=== PATIENT | male | born 1950 | race Caucasian/White ===

== ENCOUNTER 2020-10-16 06:37 | Inpatient (IN) | payer MEDICARE, SELFPAY ==
[2020-10-16] VITALS (12 sets, daily range): BP systolic 92–121; BP diastolic 52–60; PULSE 99–113; RESP 16–20; TEMP 36.5–37; O2SAT 91–100; BMI 32.1; BMI 31.4
--- NOTE | 2020-10-16 07:15 | CT_ITS ---
EXAM: CT HEAD WITHOUT INTRAVENOUS CONTRAST : 1950 CLINICAL INDICATION: head injury TECHNIQUE: Multiple axial images were obtained of the head without intravenous contrast. This CT exam was performed using one or more of the following dose reduction techniques: automated exposure control, adjustment of the mA and/or kV according to patient size, and/or use of iterative reconstruction technique. This report was created using [employer] report generation technology. COMPARISON: None. 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 Diffuse cerebral volume loss. Periventricular small vessel chronic ischemic change. No intra- or extra-axial hemorrhage. Posterior fossa structures are unremarkable. No hydrocephalus. Basal cisterns are patent. BONES/JOINTS: Unremarkable. No discrete lytic or blastic abnormalities. VASCULATURE: Arterial calcifications. SINUSES: Unremarkable as visualized. Clear. MASTOID AIR CELLS: Unremarkable. Clear. ORBITS: Visualized globes, extraocular muscles, optic nerves and retrobulbar fat appear unremarkable. CT/Brain/Head without Contrast IMPRESSION: 1. 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 2. No acute intracranial abnormalities. 3. Age-related changes. Individualized dose optimization techniques were used for this CT. at 0759 Reported and signed by: Oscar Coello MD Electronically Signed: Oscar Coello MD at 7:58 EDT Tel , Service support ,
--- NOTE | 2020-10-16 07:15 | EKG12_ITS ---
Test Reason : ABD PAIN Blood Pressure : / mmHG Vent. Rate : 105 BPM Atrial Rate : 105 BPM P-R Int : 128 ms QRS Dur : 124 ms QT Int : 380 ms P-R-T Axes : 029 081 027 degrees QTc Int : 502 ms Sinus tachycardia with Premature supraventricular complexes Right bundle branch block Abnormal ECG Confirmed by MORELIA MOORE, WILBUR ([id number]), scientific editor EULOGIO ROCHA ([id number]) on 10/20/2020 12:57:29 PM Referred By: DB Confirmed By:WILBUR THIBODEAUX MD
--- NOTE | 2020-10-16 07:19 | ED.VIS.FALL ---
HPI HPI - Fall History of Present Illness Chief Complaint: Fall Narrative Narrative: 70-year-old male presenting with near syncope. He states that he has a recent diagnosis of stage IV colon cancer and is currently awaiting a PICC line in order to start chemotherapy. Today he had a fall in which she felt lightheaded prior to the fall. Patient fell and hit his head without LOC. He has a cephalohematoma on the back of his head. He does not complain of visual complaints although he has over the last 2 weeks experienced lightheadedness and generalized weakness secondary to his new diagnosis. It was discovered patient had DVT is also started on heparin 80 mg subcu every 12. He does state that he has chronically black stools which are not new. PFSH PFSH Medical History Alcohol abuse Anemia Ascites Cancer Cephalohematoma, non- Chronic pain Colon cancer Diabetes DVT (deep venous thrombosis) Former smoker Home Medications acetaminophen [Tylenol] 500 mg PO Q6H PRN 10/16/20 [History Last Taken Unknown] cholecalciferol (vitamin D3) [Vitamin D3] 50,000 unit PO QWEEK 10/16/20 [History Last Taken Unknown] enoxaparin [Lovenox] 80 mg SUBCUT Q12H 10/16/20 [History Last Taken Unknown] ferrous sulfate [FeroSul] 325 mg PO BID 10/16/20 [History Last Taken Unknown] lisinopril 40 mg PO DAILY 10/16/20 [History Last Taken Unknown] metformin 1,500 mg PO DAILY 10/16/20 [History Last Taken Unknown] oxycodone 5 mg PO Q6H PRN 10/16/20 [History Last Taken Unknown] oxycodone-acetaminophen [Percocet] 1 tab PO Q6H PRN 10/16/20 [History Last Taken Unknown] pantoprazole 40 mg PO DAILY 10/16/20 [History Last Taken Unknown] simvastatin 40 mg PO DAILY 10/16/20 [History Last Taken Unknown] Allergy/AdvReac Type Severity Reaction Status Date / Time No Known Allergies Allergy Verified 10/16/20 06:44 Social History (Updated 10/16/20 @ 12:[address] Black Pineda, DO) Smoking Status: Former smoker alcohol intake: current details: occassional ROS ROS ED Constitutional Constitutional ED: Denies fever(s), subjective or sweats Eyes Eyes: Denies blurry vision or diplopia ENT ENT ED: Denies rhinorrhea or sore throat Cardiovascular Cardiovascular: Denies chest pain or palpitations Respiratory/Chest Respiratory/Chest: Denies cough or dyspnea Gastrointestinal Gastrointestinal: Reports abdominal pain and melena Genitourinary Genitourinary ED: Denies dysuria or hematuria Musculoskeletal Musculoskeletal: Denies arthralgias or myalgias Integumentary Reports other Details: Occipital cephalhematoma ; Denies rash Neurologic Neurologic: Denies headache(s) or paresthesias Psychiatric Psychiatric: Denies anxiety or depression EXAM Physical Exam Const Vital Signs: 10/16/20 06:39 10/16/20 06:45 10/16/20 07:21 Temperature 97.7 F L 97.7 F L Temperature Source Temporal Temporal Pulse Rate 113 H 113 H Respiratory Rate 16 16 Respiratory Effort Normal Non-Labored Blood Pressure 92/52 L 92/52 L Blood Pressure Mean 65 65 Pulse Ox 91 91 97 Oxygen Delivery Method Room Air Nasal Cannula Nasal Cannula Oxygen Flow Rate (L/min) 2 2 10/16/20 07:49 10/16/20 08:46 10/16/20 09:13 Temperature 98.4 F 98.4 F 98.4 F Temperature Source Oral Oral Oral Pulse Rate 105 H 106 H 105 H Respiratory Rate 20 H 18 20 H Respiratory Effort Blood Pressure 103/54 L 105/58 L 99/60 Blood Pressure Mean 70 73 73 Pulse Ox 97 96 95 Oxygen Delivery Method Nasal Cannula Nasal Cannula Nasal Cannula Oxygen Flow Rate (L/min) 2 2 2 10/16/20 10:37 10/16/20 11:54 Temperature 98 F 98.5 F Temperature Source Temporal Oral Pulse Rate 102 H 102 H Respiratory Rate 16 20 H Respiratory Effort Blood Pressure 100/59 L 121/52 H Blood Pressure Mean 72 75 Pulse Ox 100 95 Oxygen Delivery Method Nasal Cannula Nasal Cannula Oxygen Flow Rate (L/min) 2 2 Positive well nourished General Appearance ED: NAD HEENT Reports normocephalic hematoma Hematoma Size: Occipital Eyes PERRL and EOMs intact bilaterally General Eye ED: Negative for pale conjunctiva or scleral icterus Neck No full ROM and No supple Resp normal respiratory effort and clear to auscultation bilaterally Cardio regular rhythm Rate: tachycardic GI GI Narrative: Abdominal distention with positive fluid wave. Inspection: abdominal distention Extremity normal to inspection Neuro oriented x3 Sensorium / Orientation: alert Psych mental status grossly normal and thought process normal Skin Skin Narrative: Superficial skin tear right forearm Rashes: no rashes MDM MDM MDM Narrative Medical decision making narrative: Patient presenting with generalized weakness and fall and could not get up on his own strength. Apparently this is been progressing over the last couple of weeks after being diagnosed with stage IV colon cancer. He was seen yesterday and given IV fluids as well as IV iron supplementation at that point his hemoglobin was 10.1 and is still 10.1 today. His white blood cell count was 20 and its 19.8.today platelet count is normal. Potassium was 5.5 yesterday and it is now 5.0. Creatinine was 2.41 yesterday and today it is 3.41 even after receiving fluids. LFTs are within normal limits. Patient had EKG performed on arrival which shows sinus tachycardia with a right bundle branch block on my interpretation. Patient's daughter is a nurse and she states that she is noncritical care, emergency room, ICU. She is very informed of this healthcare and is the medical power of vice president medical affairs. She states that his blood pressure was lower yesterday than today and that is why he received IV fluids. She states that prior to his diagnosis he was usually in the 120s systolic.His blood pressure has been low for his family monitor who is a nurse. She states that he was in the 70s yesterday and had outpatient 500 cc of IV fluids and his pressure is better today. The weakness and lightheadedness that he experiences is new over the last 2 weeks. Patient's daughter states that his hemoglobin was 10 yesterday. Patient's daughter also reports that he has had abdominal ascites since this new diagnosis and is on oxycodone at home for this pain. He has not required paracentesis. He denies fever, chills, nausea, vomiting. Radiologist read the chest x-ray as right upper lobe possible infiltrate. I did review the patient's past CT of the chest on 09/25/2020 and it is noted that he has an area in the right upper lobe with a reticulonodular infiltrate. On my interpretation I do not believe this is infectious in etiology given the previous findings and since he has no respiratory symptoms. He has been afebrile. His Covid antigen is negative. He does have hypotension however this is not a new finding for him and its higher than it was yesterday. This was all discussed with his daughter who is the medical power of vice president medical affairs and she states she does not want to do antibiotics at this time and she wants to hold off on antibiotics at this time. Patient was given 500 cc of IV fluids however his daughter did not want to give him too much due to his ascites issue and she is scared it will shift and cause him more pain. He was given fentanyl for pain due to his low blood pressure and he is currently comfortable. CT brain was negative for acute intracranial abnormality. I spoke with Dr. Gomes from oncology at [facility]. She did accept admission. Patient is awaiting transfer. After speaking with [facility] they do believe that patient will have an extended stay in the ER and given this I did contact the hospitalist for admission until that a transfer can be made. Patient's blood pressure had responded to fluids. He is admitted in stabilized condition. Impression: 1. History of stage IV colon cancer 2. Acute kidney injury 3. Hypotension 4. Leukocytosis 5. Closed head injury 6. Generalized weakness and falls Lab Data Labs: Laboratory Results - last 24 hr 10/16/20 10/16/20 10/16/20 06:55 06:55 09:10 WBC 19.8 H RBC 4.20 L Hgb 10.1 L Hct 32.9 L MCV 78.3 L MCH 24.0 L MCHC 30.7 L RDW Std Deviation 52.2 H RDW Coeff of Scarlett 18.5 H Plt Count 355 MPV 10.7 Immature Gran % (Auto) 1.600 H Neut % (Auto) 88.6 H Lymph % (Auto) 2.9 L [place] % (Auto) 6.5 Eos % (Auto) 0.1 Baso % (Auto) 0.3 Absolute Neuts (auto) 17.6 H Absolute Lymphs (auto) 0.58 L Nucleated RBC % 0 Differential Comment COMMENT Sodium 132 L Potassium 5.0 Chloride 102 Carbon Dioxide 17.0 L Anion Gap 13 BUN 71 H Creatinine 3.41 H Estim Creat Clear Calc 18.31 Est GFR (MDRD) Af Amer 23 L Est GFR (MDRD) Non-Af 19 L BUN/Creatinine Ratio 20.8 H Glucose 70 L Lactic Acid 1.3 Calcium 7.1 L Total Bilirubin 0.50 AST 19 ALT 8 L Alkaline Phosphatase 68 Troponin I High Sens 11.3 Total Protein 6.0 L Albumin 1.6 L Globulin 4.4 H Albumin/Globulin Ratio 0.4 L Radiography Diagnostic Testing: Radiology Impression Brain CT 10/16/20 07:15 IMPRESSION: 1. 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 2. No acute intracranial abnormalities. 3. Age-related changes. Individualized dose optimization techniques were used for this CT. at 0759 Reported and signed by: Oscar Coello MD Electronically Signed: Oscar Coello MD at 7:58 EDT Tel , Service support , Chest X-Ray 10/16/20 07:37 IMPRESSION: Patchy right upper lobe airspace disease. Findings may indicate pneumonia. at 0759 Reported and signed by: Oscar Coello MD Electronically Signed: Oscar Coello MD at 7:59 EDT Tel , Service support , Discharge Plan Disposition Disposition: Acute Care Hospital [facility] Discharge Date/Time: 10/16/20 11:59
[2020-10-16 07:27] LABS: Absolute Lymphocyte Count 0.58 X10^3/uL (0.83-4.51); Absolute Neutrophil Count 17.6 X10^3/uL (2.0-7.7); Basophil# 0.06 X10^3/uL; Basophil% 0.3 % (0-1); Eosinophil# 0.02 X10^3/uL; Eosinophils% 0.1 % (0-5); Hematocrit 32.9 % (40-54); Hemoglobin 10.1 g/dL (13.0-16.5); Lymphocyte # 0.58 X10^3/ul (0.83-4.51); Lymphocyte % 2.9 % (19-41); Mean Corp Hgb Conc 30.7 g/dL (32-36); Mean Corpuscular Volume 78.3 fL (80-94); Mean Platelet Vol. 10.7 fl (6.2-12.0); Monocyte# 1.29 X10^3/uL; Monocyte% 6.5 % (0-10); NRBC Flagged by Analyzer 0 % (0-5); Neutrophil # 17.57 X10^3/uL (2.7-7.7); Neutrophil % 88.6 % (47-70); POSITIVE DIFFERENTIAL YES; Platelet Count 355 K/mm3 (150-450); RBC Distribution Width CV 18.5 % (11.6-14.6); RBC Distribution Width SD 52.2 fl (35.1-43.9); White Blood Count 19.8 K/mm3 (4.4-11.0)
[2020-10-16 07:31] LABS: Differential Indicated SCAN CRITERIA MET
--- NOTE | 2020-10-16 07:37 | RAD_ITS ---
EXAM: XR CHEST, 1 VIEW : 1950 CLINICAL INDICATION: near syncope TECHNIQUE: Frontal view of the chest. This report was created using [employer] report generation technology. COMPARISON: None. FINDINGS: LUNGS AND PLEURAL SPACES: Patchy right upper lobe airspace disease. No pneumothorax. No effusion. HEART: Unremarkable. Cardiac silhouette not enlarged. MEDIASTINUM: Central airways and mediastinal contour are unremarkable. BONES/JOINTS: Degenerative changes of the spine. SOFT TISSUES: Unremarkable. RAD/Chest 1 View (Portable) IMPRESSION: Patchy right upper lobe airspace disease. Findings may indicate pneumonia. at 0759 Reported and signed by: Oscar Coello MD Electronically Signed: Oscar Coello MD at 7:59 EDT Tel , Service support ,
[2020-10-16 07:41] LABS: ALB/GLOB Ratio 0.4 RATIO (0.9-2.4); AST(SGOT) 19 U/L (15-37); Alanine Aminotransfer ALT/SGPT 8 U/L (16-61); Albumin, Serum 1.6 g/dL (3.2-5.0); Alkaline Phosphatase 68 U/L (45-117); Anion Gap 13 (5-15); BUN 71 mg/dL (7-18); BUN/Creat Ratio 20.8 RATIO (10-20); Calcium,Total 7.1 mg/dL (8.5-10.1); Chloride 102 mmol/L (98-107); Creatinine, Serum 3.41 mg/dL (0.70-1.30); EST Glomerular Filtration Rate 19 mL/min (>60); Est Glom Filt Rate - Afr Amer 23 mL/min (>60); Estimated Creatinine Clearance 18.31 ml/min; Globulin 4.4 g/dL (2.2-4.2); Glucose 70 mg/dL (74-106); Sodium Level 132 mmol/L (136-145); Troponin-I HS 11.3 pg/mL (3.0-78.5)
[2020-10-16] MEDS: fentaNYL 100 MCG/2 ML Ampul 25 MCG IV (07:46)
[2020-10-16 09:46] LABS: Lactic Acid 1.3 mmol/L (0.4-1.9)
--- NOTE | 2020-10-16 11:26 | ED.RN ---
MEDICAL POA REFUSING ANTIBIOTICS.
--- NOTE | 2020-10-16 11:27 | ED.RN ---
DR. CASTRO INFORMED OF SEPSIS ALERT. PT AND PT POA REFUSING ANTIBIOTICS AT THIS TIME, REPORTS THAT WILL MANAGE CARE WHEN TRANSFERRED.
--- NOTE | 2020-10-16 12:31 | PCM.HP.STD ---
HPI - General General Date of Admission: 10/16/20 HPI Narrative YANE MURPHY, is a 70 M who presents with a fall. Patient was try to get up and lost his balance and fell. Did hit his head but no loss consciousness. Patient was found to have acute kidney injury where his creatinine is 3.4. Patient has no prior history of any kidney issues. Patient's daughter wanted the patient admitted to [facility]. They reached out to [facility] and the patient was accepted, however would not be having a bed available for roughly 12 hours. The hospitalist service was contacted to admit the patient until the patient could be safely transfer to [facility]. Patient has recently been diagnosed with stage IV colon adenocarcinoma with a mass at the hepatic flexure with duodenal metastasis as well as mesenteric and retroperitoneal lymphadenopathy. Patient is also found to have a jugular thrombosis as well as a right peroneal DVT and has been on enoxaparin. PFSH Medical History Alcohol abuse Anemia Ascites Cancer Cephalohematoma, non- Chronic pain Colon cancer Diabetes DVT (deep venous thrombosis) Former smoker Home Medications acetaminophen [Tylenol] 500 mg PO Q6H PRN 10/16/20 [History Last Taken Unknown] cholecalciferol (vitamin D3) [Vitamin D3] 50,000 unit PO QWEEK 10/16/20 [History Last Taken Unknown] enoxaparin [Lovenox] 80 mg SUBCUT Q12H 10/16/20 [History Last Taken Unknown] ferrous sulfate [FeroSul] 325 mg PO BID 10/16/20 [History Last Taken Unknown] lisinopril 40 mg PO DAILY 10/16/20 [History Last Taken Unknown] metformin 500 mg PO TID 10/16/20 [History Last Taken Unknown] oxycodone 5 mg PO Q6H PRN 10/16/20 [History Last Taken Unknown] oxycodone-acetaminophen [Percocet] 1 tab PO Q6H PRN 10/16/20 [History Last Taken Unknown] pantoprazole 40 mg PO DAILY 10/16/20 [History Last Taken Unknown] simvastatin 40 mg PO DAILY 10/16/20 [History Last Taken Unknown] Allergy/AdvReac Type Severity Reaction Status Date / Time No Known Allergies Allergy Verified 10/16/20 06:44 Social History (Updated 10/16/20 @ 12:[address] Black Pineda, DO) Smoking Status: Former smoker alcohol intake: current details: occassional ROS ROS Narrative Lightheadedness septic when he stands up. Has lost roughly 45 pounds in the past year. Constipation which is mild was colon cancer was finally diagnosed. Increased abdominal distention and ascites. Increased lower extremity edema. Decreased appetite. All review of systems were negative except as mentioned above in the history of present illness and the other review of systems. Vital Signs Vital Signs Vital Signs: 10/16/20 06:39 10/16/20 06:45 10/16/20 07:21 Temperature 36.5 C L 36.5 C L Temperature Source Temporal Temporal Pulse Rate 113 H 113 H Respiratory Rate 16 16 Respiratory Effort Normal Non-Labored Blood Pressure 92/52 L 92/52 L Blood Pressure Mean 65 65 Blood Pressure Source Blood Pressure Position Blood Pressure Location Pulse Ox 91 91 97 Oxygen Delivery Method Room Air Nasal Cannula Nasal Cannula Oxygen Flow Rate (L/min) 2 2 10/16/20 07:49 10/16/20 08:46 10/16/20 09:13 Temperature 36.9 C 36.9 C 36.9 C Temperature Source Oral Oral Oral Pulse Rate 105 H 106 H 105 H Respiratory Rate 20 H 18 20 H Respiratory Effort Blood Pressure 103/54 L 105/58 L 99/60 Blood Pressure Mean 70 73 73 Blood Pressure Source Blood Pressure Position Blood Pressure Location Pulse Ox 97 96 95 Oxygen Delivery Method Nasal Cannula Nasal Cannula Nasal Cannula Oxygen Flow Rate (L/min) 2 2 2 10/16/20 10:37 10/16/20 11:54 10/16/20 12:16 Temperature 36.6 C 36.9 C 37.0 C Temperature Source Temporal Oral Oral Pulse Rate 102 H 102 H 103 H Respiratory Rate 16 20 H 18 Respiratory Effort Blood Pressure 100/59 L 121/52 H 105/52 L Blood Pressure Mean 72 75 69 Blood Pressure Source Monitor Blood Pressure Position Semi-Fowlers Blood Pressure Location Left Arm Pulse Ox 100 95 96 Oxygen Delivery Method Nasal Cannula Nasal Cannula Nasal Cannula Oxygen Flow Rate (L/min) 2 2 2 Weight Weight: 91.1 kg Body Mass Index (BMI) 31.4 Physical Exam Const alert HEENT normocephalic Eyes PERRL Neck no lymphadenopathy Resp normal respiratory effort, no retractions, no use of accessory muscles and clear to auscultation bilaterally Cardio regular rate, regular rhythm, S1 normal heart sound and S2 normal heart sound GI normal to inspection, nondistended, normoactive bowel sounds and soft to palpation GI Narrative: Distended. Fluid wave. Abdominal tenderness but no guarding. Extremity Extremity Narrative: 3+ pitting edema bilateral lower extremities Skin no rashes or lesions noted Skin Narrative: Bruising on upper extremities. No pulmonary erythema Neuro Neuro Narrative: DTRs intact in lower extremities. No asterixis Psych Psych Narrative: Flat affect. Results Medical Records Data Attestation: I reviewed the patient's medical records Medical records narrative: Reviewed records from [facility]. Patient had a duplex of his lower extremity showed a right peroneal DVT Patient had a CAT scan of his abdomen pelvis that showed a a hepatic flexure mass measuring 10.6 x 7.9 x 5cm as well as diffuse mesenteric and retroperitoneal lymphadenopathy Lab / Micro Data Attestation: I reviewed the patient's lab results. Result Diagrams: 10/16/20 06:55 10/16/20 06:55 Labs: Laboratory Results - last 24 hr 10/16/20 10/16/20 10/16/20 06:55 06:55 09:10 WBC 19.8 H RBC 4.20 L Hgb 10.1 L Hct 32.9 L MCV 78.3 L MCH 24.0 L MCHC 30.7 L RDW Std Deviation 52.2 H RDW Coeff of Scarlett 18.5 H Plt Count 355 MPV 10.7 Immature Gran % (Auto) 1.600 H Neut % (Auto) 88.6 H Lymph % (Auto) 2.9 L [place] % (Auto) 6.5 Eos % (Auto) 0.1 Baso % (Auto) 0.3 Absolute Neuts (auto) 17.6 H Absolute Lymphs (auto) 0.58 L Nucleated RBC % 0 Differential Comment COMMENT Sodium 132 L Potassium 5.0 Chloride 102 Carbon Dioxide 17.0 L Anion Gap 13 BUN 71 H Creatinine 3.41 H Estim Creat Clear Calc 18.31 Est GFR (MDRD) Af Amer 23 L Est GFR (MDRD) Non-Af 19 L BUN/Creatinine Ratio 20.8 H Glucose 70 L Lactic Acid 1.3 Calcium 7.1 L Total Bilirubin 0.50 AST 19 ALT 8 L Alkaline Phosphatase 68 Troponin I High Sens 11.3 Total Protein 6.0 L Albumin 1.6 L Globulin 4.4 H Albumin/Globulin Ratio 0.4 L Micro: Microbiology 10/16/20 08:25 SARS-CoV-2 Antigen (Rapid) - Final Mucosa - Nose EKG Initial EKG: Attestation: I personally reviewed and interpreted this EKG as follows: Prior EKG tracings: available for review EKG Rhythm Intrepretation: Sinus Rhythm (Right bundle branch block) Radiology Impression Brain CT 10/16/20 07:15 IMPRESSION: 1. 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 2. No acute intracranial abnormalities. 3. Age-related changes. Individualized dose optimization techniques were used for this CT. at 0759 Reported and signed by: Oscar Coello MD Electronically Signed: Oscar Coello MD at 7:58 EDT Tel , Service support , Chest X-Ray 10/16/20 07:37 IMPRESSION: Patchy right upper lobe airspace disease. Findings may indicate pneumonia. at 0759 Reported and signed by: Oscar Coello MD Electronically Signed: Oscar Coello MD at 7:59 EDT Tel , Service support , Assessment & Plan Assessment/Plan (1) CONNIE (acute kidney injury): (2) Debility: (3) Ascites: QUALIFIERS: Ascites type: malignant Qualified Code(s): R18.0 - Malignant ascites (4) Colon cancer: QUALIFIERS: Colon location: hepatic flexure Qualified Code(s): C18.3 - Malignant neoplasm of hepatic flexure PLAN: 1. Acute kidney injury Clinically, the patient is volume overloaded Unclear if the patient is intravascularly depleted or if there is some postobstructive process due to his ascites Plan: Will give the patient IV fluids, check postvoid residual, check ultrasound of the kidney and bladder Check urine studies Hold lisinopril, Metformin 2. Debility and falls Due to patient's underlying cancer, malnutrition Plan: PT OT evaluate and treat 3. Colon cancer Stage IV Looks as though he has carcinomatosis Plan Patient and daughter requesting transfer to nearest hospital where he can continue with his management for his cancer there. Would suspect the patient would need to be more medically optimized before undergoing chemotherapy and port placement but will defer to the physicians at [facility] when he is eventually transferred there 4. 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 Will defer to the specialist at [facility] if they feel it necessary to evaluate for malignant cells given the patient's extensive mesenteric lymphadenopathy. This is essentially malignant ascites. 5. Diabetes mellitus type 2 Plan: Hold Metformin given acute kidney injury Check blood sugars. May consider sliding scale insulin but blood sugars are elevated. 6. Venous thromboembolic disease Patient has a jugular thrombus as well as the right peroneal DVT This is due to the patient's underlying malignancy Plan Given acute kidney injury, changes enoxaparin to daily from twice daily 7. VTE prophylaxis: Not indicated as patient is already on anticoagulation 8. Advanced care planning: Discussed with the patient and his daughter. Patient is full CODE STATUS 9. Disposition: Patient is here until bed becomes available at [facility]. Charges/Coding Visit Charges Inpatient E&M: 68730 Init Hosp L3
--- NOTE | 2020-10-16 12:36 | US_ITS ---
STUDY: RENAL ULTRASOUND - COMPLETE REASON FOR EXAM: Male, 70 years old. CONNIE TECHNIQUE: Ultrasound evaluation of the kidneys was performed with real-time and static kirby-scale imaging. COMPARISON: None. FINDINGS: RIGHT KIDNEY: Normal location of the right kidney, which is normal in size. The right kidney measures 13.0 cm. There is a normal cortex of the right kidney. The renal cortex measures 1.5 cm. There is no right renal mass or cyst. There are no right renal calculi. There is moderate hydronephrosis of the right kidney. DISTAL RIGHT URETER: There is non-visualization of the distal right ureter. There is no demonstrated right ureterovesical junction calculus. There is a visualized right ureteral jet. LEFT KIDNEY: Normal location of the left kidney, which is normal in size. The left kidney measures 14.0 cm. There is a normal cortex of the left kidney. The renal cortex measures 1.4 cm. There is no left renal mass or cyst. There are no left renal calculi. There is moderate hydronephrosis of the left kidney. DISTAL LEFT URETER: There is non-visualization of the distal left ureter. There is no demonstrated left ureterovesical junction calculus. There is a visualized left ureteral jet. BLADDER: The distended urinary bladder has a volume of 102 ml. The empty urinary bladder has a volume of ml. There is a normal wall thickness of the distended urinary bladder. There is no demonstrated mass within the urinary bladder. There are no demonstrated bladder calculi. US/Kidney and Bladder IMPRESSION: Moderate hydronephrosis bilaterally. Electronically Signed: Filiberto Carmona MD at 14:31 EDT Tel , Service support ,
[2020-10-16] MEDS: 0.9% Normal Saline 1,000 ML 150 ML IV (12:49)
[2020-10-16] MEDS: Enoxaparin 80 MG/0.8 ML Syringe SC (13:16)
[2020-10-16] MEDS: oxyCODONE 5 MG Tablet PO (13:16)
[2020-10-16] MEDS: 0.9% Saline Lock 10 ML Syringe IV ×2 (13:17→16:40)
--- NOTE | 2020-10-16 14:43 | EX.NTREPO ---
Medical Nutrition Therapy - History Nutrition Services has been consulted to:: Manage nutrient details of diet order Current diet/nutrition support order:: regular - Anthropometric Measurements Height:: 5 ft 7 in Weight:: 91.1 kg Body Mass Index (BMI):: 31.4 - Relevant Labs Relevant Labs:: WBC 19.8 K/mm3 (4.4-11.0) H 10/16/20 06:55 RBC 4.20 M/mm3 (4.6-6.2) L 10/16/20 06:55 Hgb 10.1 g/dL (13.0-16.5) L 10/16/20 06:55 Hct 32.9 % (40-54) L 10/16/20 06:55 MCV 78.3 fL (80-94) L 10/16/20 06:55 MCH 24.0 pg (27.0-32.0) L 10/16/20 06:55 MCHC 30.7 g/dL (32-36) L 10/16/20 06:55 RDW Std Deviation 52.2 fl (35.1-43.9) H 10/16/20 06:55 RDW Coeff of Scarlett 18.5 % (11.6-14.6) H 10/16/20 06:55 Immature Gran % (Auto) 1.600 % (0.0-0.9) H 10/16/20 06:55 Neut % (Auto) 88.6 % (47-70) H 10/16/20 06:55 Lymph % (Auto) 2.9 % (19-41) L 10/16/20 06:55 Absolute Neuts (auto) 17.6 X10^3/uL (2.0-7.7) H 10/16/20 06:55 Absolute Lymphs (auto) 0.58 X10^3/uL (0.83-4.51) L 10/16/20 06:55 Sodium 132 mmol/L (136-145) L 10/16/20 06:55 Carbon Dioxide 17.0 mmol/L (21.0-32.0) L 10/16/20 06:55 BUN 71 mg/dL (7-18) H 10/16/20 06:55 Creatinine 3.41 mg/dL (0.70-1.30) H 10/16/20 06:55 Est GFR (MDRD) Af Amer 23 mL/min (>60) L 10/16/20 06:55 Est GFR (MDRD) Non-Af 19 mL/min (>60) L 10/16/20 06:55 BUN/Creatinine Ratio 20.8 RATIO (10-20) H 10/16/20 06:55 Glucose 70 mg/dL (74-106) L 10/16/20 06:55 Calcium 7.1 mg/dL (8.5-10.1) L 10/16/20 06:55 ALT 8 U/L (16-61) L 10/16/20 06:55 Total Protein 6.0 g/dL (6.4-8.2) L 10/16/20 06:55 Albumin 1.6 g/dL (3.2-5.0) L 10/16/20 06:55 Globulin 4.4 g/dL (2.2-4.2) H 10/16/20 06:55 Albumin/Globulin Ratio 0.4 RATIO (0.9-2.4) L 10/16/20 06:55 - Assessment Food and Nutrient Intake: 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 Pt states nothing sounds good to eat. Pt states UBW ~245# and CBW 200.8#- ~45#/18% wt loss. Pt thinks wt loss was over past 10-12 months. Pt has edema which is likely masking additional wt loss. Intake this admission to be established, small lunch at bedside, untouched. - Nutrition Diagnosis: Clinical Problem Chronic Disease or Condition Related Malnutrition Clinical Problem - Etiology: moderate malnutrition r/t inadequate energy intake w/ increased energy needs d/t cancer Clinical Problem - Signs/Symptoms: as evidenced by estimated PO intake meeting <75% of nutritional needs >3 months, unintentional wt loss of ~45#/18% x 10-12 months Status: Active Problem - Protein Calorie Malnutrition Evidence of Malnutrition Exists: Yes Moderate Protein Calorie Malnutrition: Chronic - Nutrition Intervention Nutrition Prescription: [id number] calories/day (1.3xRMR). 90-100 g protein/day (1.0g/kg). 2277mL fluid/day (25mL/kg) - Food / Nutrient Delivery Interventions Summary of nutrition intervention:: Provide oral nutrition supplement Nutrition support ordered as / adjusted to:: continue regular diet. Will add magic cup w/ dinner. Coordination of Nutrition Care: Plans to transfer to for care when bed available. - MNT Monitoring Active Nutrition Patient: Yes Nutrition Status: Requires Follow Up 3-5 Days
[2020-10-16] MEDS: Dextrose 50%-Water 25 GM/50 ML DISP.SYRIN IV (16:40)
[2020-10-16] MEDS: Ferrous Sulfate 325 MG Tablet PO (16:44)
[2020-10-16 17:16] LABS: Bedside Glucose 113 mg/dL (70-110)
[2020-10-16] MEDS: Menthol/Lanolin/Calamine/Znox 113 GM Tube 1 APPLIC TOPICAL (20:06)
[2020-10-16 20:16] LABS: Bedside Glucose 56 mg/dL (70-110)
[2020-10-16 20:31] LABS: Bedside Glucose 78 mg/dL (70-110)
[2020-10-16] MEDS: Dext 5%-0.45% NS 1,000 ML 50 ML IV (22:16)
[2020-10-17 03:00] VITALS: BP 102/60; PULSE 100; RESP 18; TEMP 36.5; O2SAT 97
[2020-10-17 03:02] LABS: Mucous, Urine 0 SEEN /hpf (<or=2+); Squamous Epithelial Cells - UA 0 SEEN /hpf (0-5)
[2020-10-17 03:04] LABS: Color, Urine Yellow (Yellow); Glucose, Dipstick Normal (Normal); Ketone-Dipstick 5 mg/dl (Negative); Leukocyte Esterase-Dipstick 25 /ul (Negative); Nitrite-Dipstick Positive (Negative); Occult Blood-Urine 25 /ul (Negative); Protein-Dipstick 15 mg/dl (Negative); Specific Gravity, Urine 1.025 (1.002-1.030); Urine Bilirubin Dipstick 6 mg/dL (Negative); Urine Clarity Clear (Clear); Urine Urobilinogen Normal (Normal)
[2020-10-17 03:12] LABS: Red Blood Cells-Urine 0-5 SEEN /hpf (0-5); White Blood Cells 0-5 SEEN /hpf (0-5)
[2020-10-17 03:13] LABS: Bacteria 2+ /hpf (None Seen)
[2020-10-17] MEDS: oxyCODONE 5 MG Tablet PO ×3 (03:28→16:47)
[2020-10-17 03:40] LABS: Urine Sodium < 5 mmol/L (Not Establ.)
[2020-10-17] MEDS: Menthol/Lanolin/Calamine/Znox 113 GM Tube 1 APPLIC TOPICAL ×2 (06:20→12:30)
[2020-10-17 06:21] LABS: Absolute Lymphocyte Count 1.36 X10^3/uL (0.83-4.51); Absolute Neutrophil Count 17.3 X10^3/uL (2.0-7.7); Basophil# 0.05 X10^3/uL; Basophil% 0.2 % (0-1); Eosinophil# 0.03 X10^3/uL; Eosinophils% 0.1 % (0-5); Hematocrit 32.2 % (40-54); Hemoglobin 9.9 g/dL (13.0-16.5); Lymphocyte # 1.36 X10^3/ul (0.83-4.51); Lymphocyte % 6.7 % (19-41); Mean Corp Hgb Conc 30.7 g/dL (32-36); Mean Corpuscular Hgb 23.9 pg (27.0-32.0); Mean Corpuscular Volume 77.6 fL (80-94); Monocyte# 1.25 X10^3/uL; Monocyte% 6.2 % (0-10); NRBC Flagged by Analyzer 0 % (0-5); Neutrophil # 17.26 X10^3/uL (2.7-7.7); Neutrophil % 85.1 % (47-70); Platelet Count 330 K/mm3 (150-450); RBC Distribution Width CV 18.6 % (11.6-14.6); RBC Distribution Width SD 51.7 fl (35.1-43.9); Red Blood Count 4.15 M/mm3 (4.6-6.2); White Blood Count 20.3 K/mm3 (4.4-11.0)
[2020-10-17 06:30] LABS: Bedside Glucose 93 mg/dL (70-110)
[2020-10-17 06:49] LABS: ALB/GLOB Ratio 0.3 RATIO (0.9-2.4); AST(SGOT) 20 U/L (15-37); Alanine Aminotransfer ALT/SGPT 9 U/L (16-61); Albumin, Serum 1.4 g/dL (3.2-5.0); Alkaline Phosphatase 70 U/L (45-117); Anion Gap 12 (5-15); BUN 80 mg/dL (7-18); BUN/Creat Ratio 21.2 RATIO (10-20); Calcium,Total 6.9 mg/dL (8.5-10.1); Chloride 103 mmol/L (98-107); Creatinine, Serum 3.78 mg/dL (0.70-1.30); EST Glomerular Filtration Rate 17 mL/min (>60); Est Glom Filt Rate - Afr Amer 20 mL/min (>60); Estimated Creatinine Clearance 16.52 ml/min; Globulin 4.2 g/dL (2.2-4.2); Glucose 91 mg/dL (74-106); Potassium 5.3 mmol/L (3.5-5.1); Protein, Total 5.6 g/dL (6.4-8.2); Sodium Level 134 mmol/L (136-145)
[2020-10-17 07:06] LABS: Bedside Glucose 47 mg/dL (70-110)
[2020-10-17 07:06] LABS: Bedside Glucose 58 mg/dL (70-110)
[2020-10-17 08:21] VITALS: BP 121/69; PULSE 100; PULSE 104; RESP 20; TEMP 36.8; O2SAT 96
[2020-10-17] MEDS: Ferrous Sulfate 325 MG Tablet PO (08:44)
[2020-10-17] MEDS: Ondansetron 4 MG/2 ML Vial IV ×2 (08:44→17:59)
[2020-10-17] MEDS: Pantoprazole Sodium 40 MG Tablet PO (08:44)
[2020-10-17] MEDS: 0.9% Saline Lock 10 ML Syringe IV ×2 (08:44→17:59)
[2020-10-17] MEDS: Docusate Sodium 100 MG Capsule PO (10:43)
--- NOTE | 2020-10-17 10:46 | PCM.PN.HOSP ---
Subjective Subjective No appetite. Minimal urine output. Objective Data Objective Data Vital Signs: Vital Signs Temp Pulse Resp BP Pulse Ox 36.8 C 104 H 20 H 121/69 H 96 10/17/20 08:21 10/17/20 08:21 10/17/20 08:21 10/17/20 08:21 10/17/20 08:21 Oxygen Flow Rate (L/min) 2 Oxygen Delivery Method Nasal Cannula Weight: 91.1 kg Body Mass Index (BMI) 31.4 Intake & Output: Intake and Output for Last 24 Hours 10/15/20 10/16/20 10/17/20 23:59 23:59 23:59 Intake Total 1600 / 1800 200 / 200 Output Total 0 / 0 250 / 250 Balance 1600 / 1800 -50 / -50 Lab / Micro Data Result Diagrams: 10/17/20 05:40 10/17/20 05:40 Labs: Laboratory Results - last 24 hr 10/16/20 10/16/20 10/16/20 16:13 16:28 17:08 WBC RBC Hgb Hct MCV MCH MCHC RDW Std Deviation RDW Coeff of Scarlett Plt Count MPV Immature Gran % (Auto) Neut % (Auto) Lymph % (Auto) [place] % (Auto) Eos % (Auto) Baso % (Auto) Absolute Neuts (auto) Absolute Lymphs (auto) Nucleated RBC % Sodium Potassium Chloride Carbon Dioxide Anion Gap BUN Creatinine Estim Creat Clear Calc Est GFR (MDRD) Af Amer Est GFR (MDRD) Non-Af BUN/Creatinine Ratio Glucose Calcium Total Bilirubin AST ALT Alkaline Phosphatase Total Protein Albumin Globulin Albumin/Globulin Ratio Urine Color Urine Clarity Urine pH Ur Specific [place] Urine Protein Urine Glucose (UA) Urine Ketones Urine Occult Blood Urine Nitrite Urine Bilirubin Urine Urobilinogen Ur Leukocyte Esterase Urine RBC Urine WBC Ur Squamous Epith Cells Urine Bacteria Urine Mucus Ur Random Sodium Urine Creatinine POC Glucose 58 L 47 L 113 H 10/16/20 10/16/20 10/17/20 20:03 20:24 00:40 WBC RBC Hgb Hct MCV MCH MCHC RDW Std Deviation RDW Coeff of Scarlett Plt Count MPV Immature Gran % (Auto) Neut % (Auto) Lymph % (Auto) [place] % (Auto) Eos % (Auto) Baso % (Auto) Absolute Neuts (auto) Absolute Lymphs (auto) Nucleated RBC % Sodium Potassium Chloride Carbon Dioxide Anion Gap BUN Creatinine Estim Creat Clear Calc Est GFR (MDRD) Af Amer Est GFR (MDRD) Non-Af BUN/Creatinine Ratio Glucose Calcium Total Bilirubin AST ALT Alkaline Phosphatase Total Protein Albumin Globulin Albumin/Globulin Ratio Urine Color Yellow Urine Clarity Clear Urine pH 5.0 Ur Specific [place] 1.025 Urine Protein 15 H Urine Glucose (UA) Normal Urine Ketones 5 H Urine Occult Blood 25 H Urine Nitrite Positive H Urine Bilirubin 6 H Urine Urobilinogen Normal Ur Leukocyte Esterase 25 H Urine RBC 0-5 SEEN Urine WBC 0-5 SEEN Ur Squamous Epith Cells 0 SEEN Urine Bacteria 2+ Urine Mucus 0 SEEN Ur Random Sodium Urine Creatinine POC Glucose 56 L 78 10/17/20 10/17/20 10/17/20 00:40 05:40 05:40 WBC 20.3 H RBC 4.15 L Hgb 9.9 L Hct 32.2 L MCV 77.6 L MCH 23.9 L MCHC 30.7 L RDW Std Deviation 51.7 H RDW Coeff of Scarlett 18.6 H Plt Count 330 MPV 10.0 Immature Gran % (Auto) 1.700 H Neut % (Auto) 85.1 H Lymph % (Auto) 6.7 L [place] % (Auto) 6.2 Eos % (Auto) 0.1 Baso % (Auto) 0.2 Absolute Neuts (auto) 17.3 H Absolute Lymphs (auto) 1.36 Nucleated RBC % 0 Sodium 134 L Potassium 5.3 H Chloride 103 Carbon Dioxide 19.0 L Anion Gap 12 BUN 80 H Creatinine 3.78 H Estim Creat Clear Calc 16.52 Est GFR (MDRD) Af Amer 20 L Est GFR (MDRD) Non-Af 17 L BUN/Creatinine Ratio 21.2 H Glucose 91 Calcium 6.9 L Total Bilirubin 0.40 AST 20 ALT 9 L Alkaline Phosphatase 70 Total Protein 5.6 L Albumin 1.4 L Globulin 4.2 Albumin/Globulin Ratio 0.3 L Urine Color Urine Clarity Urine pH Ur Specific [place] Urine Protein Urine Glucose (UA) Urine Ketones Urine Occult Blood Urine Nitrite Urine Bilirubin Urine Urobilinogen Ur Leukocyte Esterase Urine RBC Urine WBC Ur Squamous Epith Cells Urine Bacteria Urine Mucus Ur Random Sodium < 5 Urine Creatinine 176.00 POC Glucose 10/17/20 06:19 WBC RBC Hgb Hct MCV MCH MCHC RDW Std Deviation RDW Coeff of Scarlett Plt Count MPV Immature Gran % (Auto) Neut % (Auto) Lymph % (Auto) [place] % (Auto) Eos % (Auto) Baso % (Auto) Absolute Neuts (auto) Absolute Lymphs (auto) Nucleated RBC % Sodium Potassium Chloride Carbon Dioxide Anion Gap BUN Creatinine Estim Creat Clear Calc Est GFR (MDRD) Af Amer Est GFR (MDRD) Non-Af BUN/Creatinine Ratio Glucose Calcium Total Bilirubin AST ALT Alkaline Phosphatase Total Protein Albumin Globulin Albumin/Globulin Ratio Urine Color Urine Clarity Urine pH Ur Specific [place] Urine Protein Urine Glucose (UA) Urine Ketones Urine Occult Blood Urine Nitrite Urine Bilirubin Urine Urobilinogen Ur Leukocyte Esterase Urine RBC Urine WBC Ur Squamous Epith Cells Urine Bacteria Urine Mucus Ur Random Sodium Urine Creatinine POC Glucose 93 Micro: Microbiology 10/16/20 08:25 Mucosa - Nose SARS-CoV-2 Antigen (Rapid) - Final Radiography Diagnostic Testing: Radiology Impression Renal Ultrasound 10/16/20 12:36 IMPRESSION: Moderate hydronephrosis bilaterally. Electronically Signed: Filiberto Carmona MD at 14:31 EDT Tel , Service support , ADDENDUM: 10/16/20 1517 Physical Exam Const alert Constitutional Narrative: awake. cachectic. afebrile. HEENT head/scalp atraumatic and moist oral mucous membranes Head and Scalp: normocephalic Eyes PERRL Resp normal respiratory effort, no retractions, no use of accessory muscles and clear to auscultation bilaterally Cardio regular rate, regular rhythm, S1 normal heart sound and S2 normal heart sound GI GI Narrative: distended. ascites. not taut. Extremity Extremity Narrative: 3+ LE edema. Skin no rashes or lesions noted Neuro Sensorium / Orientation: awake and alert Psych affect normal Assessment & Plan Assessment/Plan (1) CONNIE (acute kidney injury): (2) Debility: (3) Ascites: QUALIFIERS: Ascites type: malignant Qualified Code(s): R18.0 - Malignant ascites (4) Colon cancer: QUALIFIERS: Colon location: hepatic flexure Qualified Code(s): C18.3 - Malignant neoplasm of hepatic flexure PLAN: 1. Acute kidney injury Worse. Likely oliguric. Clinically, the patient is volume overloaded Unclear if the patient is intravascularly depleted or if there is some postobstructive process due to his ascites Renal US shows moderate hydronephrosis Plan: Will give the patient IV fluids, check postvoid residual Check urine studies Hold lisinopril, Metformin Pt and dtr have wanted transfer to . Unclear when that will occur. If prolonged, then will consult nephrology and urology. 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 2. Debility and falls Due to patient's underlying cancer, malnutrition Plan: PT OT evaluate and treat 3. Colon cancer Stage IV Looks as though he has carcinomatosis Plan Patient and daughter requesting transfer to [facility] where he can continue with his management for his cancer there. Would suspect the patient would need to be more medically optimized before undergoing chemotherapy and port placement but will defer to the physicians at [facility] when he is eventually transferred there 4. 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 Will defer to the specialist at [facility] if they feel it necessary to evaluate for malignant cells given the patient's extensive mesenteric lymphadenopathy. This is essentially malignant ascites. Hold enoxaparin as I suspect pt may need paracentesis. 5. Diabetes mellitus type 2 Plan: Hold Metformin given acute kidney injury Check blood sugars. May consider sliding scale insulin but blood sugars are elevated. 6. Venous thromboembolic disease Patient has a jugular thrombus as well as the right peroneal DVT This is due to the patient's underlying malignancy Plan Given acute kidney injury, changes enoxaparin to daily from twice daily 7. VTE prophylaxis: Not indicated as patient is already on anticoagulation 8. Advanced care planning: Discussed with the patient and his daughter. Patient is full CODE STATUS 9. Disposition: Patient is here until bed becomes available at [facility]. Charges/Coding Visit Charges Inpatient E&M: 17607 [facility] L3
[2020-10-17 11:16] LABS: Bedside Glucose 102 mg/dL (70-110)
--- NOTE | 2020-10-17 14:00 | CASEMGMT ---
MARCE RAGLAND Assessment: Face to Face with pt for initial transition planning/care coordination assessment. RN CM introduced self and role at [facility], pt voices understanding and consents to assessment. Pt is A/O x4 and answers all questions appropriately at this time. Pt on O2 lying in bed with brother at bedside. Pt did not particularly want to answer CM questions but did agree to do so. Pt awaiting trf to . Care providers, pharmacy, and demographics verified/updated. Admitting Dx: CONNIE PCP: Eula Specialists: Pt states he has too many and is unwilling to list. [facility] Insurance: [facility] Prescription Benefit: yes LNOK: Nhung Charles, stepdtr; Daniel Diazzer, brother Living Arrangements: Pt lives alone in house with 4 steps to enter. Pt states he is I in ADL's and denies concerns at home. Transportation: Pt states he drives himself and denies concern with transportation. DME/HHC/SNF: Pt denies having any DME in the home, denies HHC or SNF stays previously. Pt is anxiously awaiting trf. CM to follow. Advised pt to ask CM if any further question/concerns/needs arise, voices understanding. Pt Goal: Trf to Plan: Trf to
[2020-10-17 14:53] VITALS: BP 110/63; PULSE 105; RESP 18; TEMP 37; O2SAT 95
[2020-10-17 14:57] VITALS: PULSE 110
[2020-10-17 16:06] LABS: Bedside Glucose 129 mg/dL (70-110)
[2020-10-17 16:52] VITALS: BP 104/62; PULSE 101; RESP 24; TEMP 36.6; O2SAT 94
[2020-10-17 17:18] LABS: Urine Sodium 28 mmol/L (Not Establ.)
--- NOTE | 2020-10-17 18:20 | PCM.DC.SUM ---
Providers Date of Admission: 10/16/20 Primary Care Physician: Dr. Sudhir Forde MD Consultations 10/17/20 16:00 Consult: Nephrology Routine Consulting Provider: Karl Vasquez Reason for Consult: CONNIE EMERGENT Consult: No MD Notified: Yes Date Notified: 10/17/20 Time Notified: 16:01 Method of Notification: Verbal Reason For Visit: CONNIE Diagnosis Discharge Diagnosis (1) CONNIE (acute kidney injury): Status: Acute Code(s): N17.9 - Acute kidney failure, unspecified (2) Debility: Status: Acute Code(s): R53.81 - Other malaise (3) Ascites: Status: Acute Code(s): R18.8 - Other ascites Qualifiers: Ascites type: malignant Qualified Code(s): R18.0 - Malignant ascites (4) Colon cancer: Status: Acute Code(s): C18.9 - Malignant neoplasm of colon, unspecified Qualifiers: Colon location: hepatic flexure Qualified Code(s): C18.3 - Malignant neoplasm of hepatic flexure Medications at Discharge Home Medications acetaminophen [Tylenol] 500 mg PO Q6H PRN 10/16/20 cholecalciferol (vitamin D3) [Vitamin D3] 50,000 unit PO QWEEK 10/16/20 enoxaparin [Lovenox] 80 mg SUBCUT Q12H 10/16/20 ferrous sulfate [FeroSul] 325 mg PO BID 10/16/20 lisinopril 40 mg PO DAILY 10/16/20 metformin 1,500 mg PO DAILY 10/16/20 oxycodone 5 mg PO Q6H PRN 10/16/20 oxycodone-acetaminophen [Percocet] 1 tab PO Q6H PRN 10/16/20 pantoprazole 40 mg PO DAILY 10/16/20 simvastatin 40 mg PO DAILY 10/16/20 Hospital Course Operations None Procedures None Summary of Care Provided Minutes Spent on Discharge: 36 Hospital Course: [id number] male presents after a fall. Patient lost his balance and fell. Patient was found to have a acute kidney injury with a creatinine 3.4. Previously his creatinine was in the 2 range. Patient diagnosed roughly 6 months ago with colon cancer. Patient had a roughly 10 cm mass in hepatic flexure as well as carcinomatosis. The emergency room recommended admission, however, the patient and his daughter want to go to [facility] where his oncologist is so that he can get a port placed and possibly undergo chemotherapy. Patient was brought here as it was anticipated the patient only be here for 12 hours. Patient went up staying roughly 24 hours. In the meantime, patient's creatinine got worse and he was oliguric. Nephrology was consulted but this was after he was conversation with [facility] transfer line and stated that it could be anywhere for a few hours to a couple days before the patient can be transferred. But apparently patient does have a bed available and will be discharged there tonight. Prognosis is guarded. She given the patient's stage IV colon cancer, would be very concerning if you would be a candidate for renal replacement therapy. This will be deferred to his oncologist and space scheduler over at [facility] as well as in concert with the patient and his daughter. Weight / BMI Weight Weight: 91.1 kg Body Mass Index (BMI) 31.4 ABG / Lab / Microbiology Data Result Diagrams: 10/17/20 05:40 10/17/20 05:40 Laboratory: Laboratory Results - last 24 hr 10/16/20 10/16/20 10/16/20 16:13 16:28 20:03 WBC RBC Hgb Hct MCV MCH MCHC RDW Std Deviation RDW Coeff of Scarlett Plt Count MPV Immature Gran % (Auto) Neut % (Auto) Lymph % (Auto) [place] % (Auto) Eos % (Auto) Baso % (Auto) Absolute Neuts (auto) Absolute Lymphs (auto) Nucleated RBC % Sodium Potassium Chloride Carbon Dioxide Anion Gap BUN Creatinine Estim Creat Clear Calc Est GFR (MDRD) Af Amer Est GFR (MDRD) Non-Af BUN/Creatinine Ratio Glucose Calcium Total Bilirubin AST ALT Alkaline Phosphatase Total Protein Albumin Globulin Albumin/Globulin Ratio Urine Color Urine Clarity Urine pH Ur Specific [place] Urine Protein Urine Glucose (UA) Urine Ketones Urine Occult Blood Urine Nitrite Urine Bilirubin Urine Urobilinogen Ur Leukocyte Esterase Urine RBC Urine WBC Ur Squamous Epith Cells Urine Bacteria Urine Mucus Ur Random Sodium Urine Creatinine POC Glucose 58 L 47 L 56 L 10/16/20 10/17/20 10/17/20 20:24 00:40 00:40 WBC RBC Hgb Hct MCV MCH MCHC RDW Std Deviation RDW Coeff of Scarlett Plt Count MPV Immature Gran % (Auto) Neut % (Auto) Lymph % (Auto) [place] % (Auto) Eos % (Auto) Baso % (Auto) Absolute Neuts (auto) Absolute Lymphs (auto) Nucleated RBC % Sodium Potassium Chloride Carbon Dioxide Anion Gap BUN Creatinine Estim Creat Clear Calc Est GFR (MDRD) Af Amer Est GFR (MDRD) Non-Af BUN/Creatinine Ratio Glucose Calcium Total Bilirubin AST ALT Alkaline Phosphatase Total Protein Albumin Globulin Albumin/Globulin Ratio Urine Color Yellow Urine Clarity Clear Urine pH 5.0 Ur Specific [place] 1.025 Urine Protein 15 H Urine Glucose (UA) Normal Urine Ketones 5 H Urine Occult Blood 25 H Urine Nitrite Positive H Urine Bilirubin 6 H Urine Urobilinogen Normal Ur Leukocyte Esterase 25 H Urine RBC 0-5 SEEN Urine WBC 0-5 SEEN Ur Squamous Epith Cells 0 SEEN Urine Bacteria 2+ Urine Mucus 0 SEEN Ur Random Sodium < 5 Urine Creatinine 176.00 POC Glucose 78 10/17/20 10/17/20 10/17/20 05:40 05:40 06:19 WBC 20.3 H RBC 4.15 L Hgb 9.9 L Hct 32.2 L MCV 77.6 L MCH 23.9 L MCHC 30.7 L RDW Std Deviation 51.7 H RDW Coeff of Scarlett 18.6 H Plt Count 330 MPV 10.0 Immature Gran % (Auto) 1.700 H Neut % (Auto) 85.1 H Lymph % (Auto) 6.7 L [place] % (Auto) 6.2 Eos % (Auto) 0.1 Baso % (Auto) 0.2 Absolute Neuts (auto) 17.3 H Absolute Lymphs (auto) 1.36 Nucleated RBC % 0 Sodium 134 L Potassium 5.3 H Chloride 103 Carbon Dioxide 19.0 L Anion Gap 12 BUN 80 H Creatinine 3.78 H Estim Creat Clear Calc 16.52 Est GFR (MDRD) Af Amer 20 L Est GFR (MDRD) Non-Af 17 L BUN/Creatinine Ratio 21.2 H Glucose 91 Calcium 6.9 L Total Bilirubin 0.40 AST 20 ALT 9 L Alkaline Phosphatase 70 Total Protein 5.6 L Albumin 1.4 L Globulin 4.2 Albumin/Globulin Ratio 0.3 L Urine Color Urine Clarity Urine pH Ur Specific [place] Urine Protein Urine Glucose (UA) Urine Ketones Urine Occult Blood Urine Nitrite Urine Bilirubin Urine Urobilinogen Ur Leukocyte Esterase Urine RBC Urine WBC Ur Squamous Epith Cells Urine Bacteria Urine Mucus Ur Random Sodium Urine Creatinine POC Glucose 93 10/17/20 10/17/20 10/17/20 11:03 16:00 17:00 WBC RBC Hgb Hct MCV MCH MCHC RDW Std Deviation RDW Coeff of Scarlett Plt Count MPV Immature Gran % (Auto) Neut % (Auto) Lymph % (Auto) [place] % (Auto) Eos % (Auto) Baso % (Auto) Absolute Neuts (auto) Absolute Lymphs (auto) Nucleated RBC % Sodium Potassium Chloride Carbon Dioxide Anion Gap BUN Creatinine Estim Creat Clear Calc Est GFR (MDRD) Af Amer Est GFR (MDRD) Non-Af BUN/Creatinine Ratio Glucose Calcium Total Bilirubin AST ALT Alkaline Phosphatase Total Protein Albumin Globulin Albumin/Globulin Ratio Urine Color Urine Clarity Urine pH Ur Specific [place] Urine Protein Urine Glucose (UA) Urine Ketones Urine Occult Blood Urine Nitrite Urine Bilirubin Urine Urobilinogen Ur Leukocyte Esterase Urine RBC Urine WBC Ur Squamous Epith Cells Urine Bacteria Urine Mucus Ur Random Sodium 28 Urine Creatinine POC Glucose 102 129 H 10/17/20 17:00 WBC RBC Hgb Hct MCV MCH MCHC RDW Std Deviation RDW Coeff of [place] Plt Count MPV Immature Gran % (Auto) Neut % (Auto) Lymph % (Auto) [place] % (Auto) Eos % (Auto) Baso % (Auto) Absolute Neuts (auto) Absolute Lymphs (auto) Nucleated RBC % Sodium Potassium Chloride Carbon Dioxide Anion Gap BUN Creatinine Estim Creat Clear Calc Est GFR (MDRD) Af Amer Est GFR (MDRD) Non-Af BUN/Creatinine Ratio Glucose Calcium Total Bilirubin AST ALT Alkaline Phosphatase Total Protein Albumin Globulin Albumin/Globulin Ratio Urine Color Urine Clarity Urine pH Ur Specific [place] Urine Protein Urine Glucose (UA) Urine Ketones Urine Occult Blood Urine Nitrite Urine Bilirubin Urine Urobilinogen Ur Leukocyte Esterase Urine RBC Urine WBC Ur Squamous Epith Cells Urine Bacteria Urine Mucus Ur Random Sodium Urine Creatinine 171.00 POC Glucose Microbiology: Microbiology 10/16/20 08:25 Mucosa - Nose SARS-CoV-2 Antigen (Rapid) - Final Meaningful Use Info Meaningful Use Diagnoses (Choose all that apply): None applicable Discharge Plan Admission Admit Date/Time: 10/16/20 12:30 Attending Provider: Black Pineda Primary Care Provider: Sudhir Forde Consulting Providers: Karl Vasquez Discharge Orders/Prescriptions Prescriptions: No Action lisinopril 20 mg Tablet 40 mg PO DAILY RF: 0 simvastatin 40 mg Tablet 40 mg PO DAILY RF: 0 pantoprazole 40 mg Tablet,Delayed Release (Dr/Ec) 40 mg PO DAILY RF: 0 ferrous sulfate [FeroSul] 325 mg (65 mg iron) Tablet 325 mg PO BID RF: 0 metformin 500 mg Tablet 1,500 mg PO DAILY RF: 0 oxycodone-acetaminophen [Percocet] 5-325 mg Tablet 1 tab PO Q6H PRN (Reason: Pain) RF: 0 oxycodone 5 mg Tablet 5 mg PO Q6H PRN (Reason: Pain) RF: 0 enoxaparin [Lovenox] 80 mg/0.8 mL Syringe 80 mg SUBCUT Q12H RF: 0 acetaminophen [Tylenol] 325 mg Capsule 500 mg PO Q6H PRN (Reason: Pain) RF: 0 cholecalciferol (vitamin D3) [Vitamin D3] 125 mcg (5,000 unit) Tablet 50,000 unit PO QWEEK RF: 0 Referrals / Follow Up: Sudhir Forde MD [Primary Care Provider] - Disposition Disposition (needs filled in before D/C Order can be placed): Acute Care Hospital Charges/Coding Visit Charges Inpatient E&M: 76480 Disch Hosp
[2020-10-17 18:27] VITALS: BP 93/53; PULSE 102; RESP 24; TEMP 36.6; O2SAT 98
[2020-10-17] MEDS: Dext 5%-0.45% NS 1,000 ML 50 ML IV (18:48)
== END 2020-10-17 18:55 | disposition short-term general hospital (02) | DRG 683 ==
LOC: ED 11:21 → MS3 12:14
PROVIDERS: Emergency Provider Student in an Organized Health Care Education/Training Program; PCP Family Medicine
DX: N17.9 Acute kidney failure, unspecified (principal); C18.3 Malignant neoplasm of hepatic flexure; R18.0 Malignant ascites; C78.4 Secondary malignant neoplasm of small intestine; I82.C19 Acute embolism and thrombosis of unspecified internal jugular vein; I82.451 Acute embolism and thrombosis of right peroneal vein; C80.0 Disseminated malignant neoplasm, unspecified; R59.0 Localized enlarged lymph nodes; E87.70 Fluid overload, unspecified; E11.9 Type 2 diabetes mellitus without complications; Z20.822 Contact with and (suspected) exposure to COVID-19; G89.29 Other chronic pain; I95.9 Hypotension, unspecified; S00.03XA Contusion of scalp, initial encounter; W19.XXXA Unspecified fall, initial encounter; Y93.9 Activity, unspecified; Y92.9 Unspecified place or not applicable; Y99.9 Unspecified external cause status; Z79.01 Long term (current) use of anticoagulants; Z79.84 Long term (current) use of oral hypoglycemic drugs; Z79.899 Other long term (current) drug therapy; Z87.891 Personal history of nicotine dependence
CPT/HCPCS: 36415; 70450; 71045; 76770; 80053; 81001; 82570; 82962; 83605; 84300; 84484; 85025; 87040; 87086; 87426; 93005; 97802; 99285; J7030; J7040; A4216; J2405; J7799